=== PATIENT | male | born 1975 | race Caucasian/White ===

== ENCOUNTER 2022-08-09 06:15 | Outpatient (CLI) | payer BC, SELFPAY | END 2022-08-09 06:16 | disposition home or self-care (01) | LOC: OP CLINIC 06:15 | PROVIDERS: PCP Physician Assistant Medical; Visit Provider Internal Medicine | DX: Z12.11 Encounter for screening for malignant neoplasm of colon (principal); K64.8 Other hemorrhoids; K63.5 Polyp of colon | CPT/HCPCS: 45380; 88305; J2250; J3010 ==